=== PATIENT | male | born 1960 | race Caucasian/White ===

== ENCOUNTER 2021-08-30 07:24 | Emergency (ER) | payer BC, OTHER ==
[2021-08-30] MEDS ORDERED: ACETAMINOPHEN 325 MG TABLET (FP) PO ONE (07:37)
[2021-08-30 09:04] VITALS: BP 117/85; PULSE 80; TEMP 98; BMI 25.7
== END 2021-08-30 09:08 | disposition home or self-care (01) ==
LOC: FER 07:24
DX: R07.81 Pleurodynia (principal)
CPT/HCPCS: 71046-TC-FY; 99283-25

== ENCOUNTER 2021-09-28 10:01 | Emergency (ER) | payer BC, OTHER ==
[2021-09-28 10:19] VITALS: BP 126/72; PULSE 67; TEMP 97.9; BMI 25.1
[2021-09-28] MEDS ORDERED: AMOXICILLIN 500 MG CAPSULE (FP) PO ONE (11:13)
[2021-09-28] MEDS ORDERED: AMOXICILLIN 250 MG CAPSULE ONE (11:16)
== END 2021-09-28 11:25 | disposition home or self-care (01) ==
LOC: FER 10:01
PROC: 0HQFXZZ Repair Right Hand Skin, External Approach (ICD-10-PCS; principal; 2021-09-28)
DX: S61.511A Laceration without foreign body of right wrist, initial encounter (principal); W26.8XXA Contact with other sharp object(s), not elsewhere classified, initial encounter
CPT/HCPCS: 99283-25